=== PATIENT | female | born 1990 | race Two or more races ===

== ENCOUNTER 2023-08-14 17:24 | Emergency (ER) | payer MEDICAID, OTHER ==
[~2023-08-14] VITALS: Ht 160 cm; Wt 78.0 kg
[2023-08-14] MEDS: IBUPROFEN 600 MG TAB PO ONE (18:06)
[2023-08-14 18:50] VITALS: BP 111/75; PULSE 100; RESP 18; TEMP 98.7
[2023-08-14 19:55] VITALS: O2SAT 98
[2023-08-14] MEDS ORDERED: CYCL-839 PO (21:45)
[2023-08-14] MEDS ORDERED: IBUP1TAB5 PO (21:45)
== END 2023-08-14 22:14 | disposition home or self-care (01) ==
LOC: ER 17:24
DX: S13.9XXA Sprain of joints and ligaments of unspecified parts of neck, initial encounter (principal); S63.502A Unspecified sprain of left wrist, initial encounter; Z79.1 Long term (current) use of non-steroidal anti-inflammatories (NSAID); V89.2XXA Person injured in unspecified motor-vehicle accident, traffic, initial encounter; Y93.89 Activity, other specified; Y92.89 Other specified places as the place of occurrence of the external cause; Y99.8 Other external cause status
CPT/HCPCS: 29125; 72125; 73110